=== PATIENT | female | born 2000 | race Caucasian/White ===

== ENCOUNTER 2023-07-08 18:00 | Emergency (ER) | payer SELFPAY ==
[2023-07-08 18:49] VITALS: RESP 18; TEMP 98.3; O2SAT 99
[2023-07-08] MEDS ORDERED: TORAdol 30 mg Injection IV ONE (18:54)
--- NOTE | 2023-07-08 19:32 | ERPHSYRPT ---
- History of Present Illness Time Seen by Provider: 07/08/23 18:29 Historian: patient Exam Limitations: no limitations Patient Subjective Stated Complaint: pt states for the past couple months I have had this pressure behind my rt eye. pt states that she was told she had multiple nodules on her lungs. 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 Patient reports she was seen in ER at [place] where she was diagnosed with pulmonary nodules. She reports still having symptoms of chest pain off and on. She has mild headache as well at times. She denies any difficulty breathing. No fever or chills reported. Patient since then has been seen in the [facility] ER yesterday for the same symptoms with negative work-up and is sent home. Patient denies any palpitations or known sick contact. Allergies/Adverse Reactions: amoxicillin Allergy (Verified 07/08/23 18:26) Anaphylactic Reaction Bleach (Sodium Hypochlorite) Allergy (Verified 07/08/23 18:26) Difficulty Breathing Iodinated Contrast Media Allergy (Verified 07/08/23 18:51) latex Allergy (Verified 07/08/23 18:26) Rash Penicillins Allergy (Verified 07/08/23 18:26) Anaphylactic Reaction red dye Allergy (Verified 07/08/23 18:26) Hives Home Medications: Albuterol Sulfate [Albuterol Sulfate Hfa] 2 puffs IH Q4HPRN PRN 07/08/23 [History] Cyanocobalamin (Vitamin B-12) [B-12] 1,000 mcg PO DAILY 07/08/23 [History] Ferrous Sulfate [Ferosul] 325 mg PO DAILY 07/08/23 [History] Scopolamine 1 each TD UD 07/08/23 [History] lamoTRIgine [Lamotrigine] 25 mg PO DAILY 07/08/23 [History] Hx Tetanus, Diphtheria Vaccination/Date Given: Yes Hx Influenza Vaccination/Date Given: No Immunizations Up to Date: Yes Travel Risk - International Travel Have you traveled outside of the country in past 3 weeks: No - Coronavirus Screening Are you exhibiting any of the following symptoms?: No Close contact with a COVID-19 positive Pt in past 14-21 Days: No - Vaccine Status Have you recieved a Covid-19 vaccination: No - Review of Systems Constitutional: No Symptoms Eyes: No Symptoms Ears, Nose, & Throat: No Symptoms Respiratory: Cough Cardiac: Chest Pain Abdominal/Gastrointestinal: No Symptoms Genitourinary Symptoms: No Symptoms Musculoskeletal: No Symptoms Skin: No Symptoms Neurological: Headache Endocrine: No Symptoms Hematologic/Lymphatic: No Symptoms Immunological/Allergic: No Symptoms - Past Medical History Pertinent Past Medical History: Yes Neurological History: Seizures ENT History: No Pertinent History Cardiac History: Hypertension, Other Respiratory History: Asthma Endocrine Medical History: No Pertinent History Musculoskeletal History: No Pertinent History GI Medical History: No Pertinent History History: No Pertinent History Psycho-Social History: Anxiety, Bipolar, Depression, Other Female Reproductive Disorders: No Pertinent History Other Medical History: anemia, boardline - Past Surgical History Past Surgical History: Yes Female Surgical History: Dilation & Curettage - Social History Smoking Status: Light tobacco smoker Exposure to second hand smoke: No Drug Use: none Patient Lives Alone: No - Female History Hx Now: (UNKN) - Nursing Vital Signs Nursing Vital Signs: Initial Vital Signs Temperature 98.3 F 07/08/23 18:01 Pulse Rate 82 07/08/23 18:01 Respiratory Rate 18 07/08/23 18:01 Blood Pressure 110/60 07/08/23 18:01 O2 Sat by Pulse Oximetry 99 07/08/23 18:01 Pain Scale Pain Intensity 6 - Physical Exam General Appearance: no apparent distress, alert Eye Exam: PERRL/EOMI, eyes nml inspection, No scleral icterus Ears, Nose, Throat Exam: normal ENT inspection, TMs normal, pharynx normal Neck Exam: normal inspection, non-tender, supple, full range of motion Respiratory Exam: normal breath sounds, lungs clear Cardiovascular Exam: regular rate/rhythm, normal heart sounds Gastrointestinal/Abdomen Exam: soft, normal bowel sounds, No tenderness Extremity Exam: normal inspection, normal range of motion Neurologic Exam: alert, oriented x 3, cooperative, 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 tested, normal mood/affect, nml cerebellar function, nml station & gait, sensation nml, motor deficits Skin Exam: normal color SpO2 Interpretation: normal SpO2: 99 O2 Delivery: Room Air - Course EKG Interpreted by Me: RATE (65), Sinus Rhythm, NORMAL AXIS, NORMAL INTERVALS, NORMAL QRS Ordered Tests: Active Orders 24 hr Category Date Time Status EKG-ER Only STAT Care 07/08/23 18:49 Active IV Insertion STAT Care 07/08/23 18:49 Active CHEST 1 VIEW (PORTABLE) Stat Exams 07/08/23 18:50 Taken CBC W DIFF Stat Lab 07/08/23 19:30 Completed CK-Creatinine Phosphokinase Stat Lab 07/08/23 19:30 Completed CMP Stat Lab 07/08/23 19:30 Completed HCG QUALITATIVE, URINE Stat Lab 07/08/23 19:30 Completed TROPONIN Q4H Lab 07/08/23 19:30 Completed TROPONIN Q4H Lab 07/08/23 23:00 Ordered TROPONIN Q4H Lab 07/09/23 03:00 Ordered Medication Summary Discontinued Medications Generic Name Dose Route Start Last Admin Trade Name Sebastian PRN Reason Stop Dose Admin Ketorolac Tromethamine 30 mg 07/08/23 18:54 07/08/23 19:13 Ketorolac Tromethamine 30 Mg/Ml Inj IV 07/08/23 18:55 Not Given STAT ONE Lab/Rad Data: Laboratory Result Diagrams 07/08/23 19:30 07/08/23 19:30 Laboratory Results 07/08/23 07/08/23 07/08/23 Range/Units 19:30 19:30 19:30 WBC (4.0-10.5) x10^3/uL RBC (4.1-5.4) x10^6/uL Hgb (12.0-16.0) g/dL Hct (35-47) % MCV (78-100) fL MCH (26-32) pg MCHC (32-36) g/dL RDW (11.5-14.0) % Plt Count (150-450) x10^3/uL MPV (7.5-11.0) fL Gran % (36.0-66.0) % Immature Gran % (Auto) (0.00-0.4) % Nucleat RBC Rel Count (0.00-0.1) % Eos # (Auto) (0-0.5) x10^3/uL Immature Gran # (Auto) (0.00-0.03) x10^3u/L Absolute Lymphs (auto) (1.0-4.6) x10^3/uL Absolute Monos (auto) (0.0-1.3) x10^3/uL Absolute Nucleated RBC (0.00-0.01) x10^3u/L Lymphocytes % (24.0-44.0) % Monocytes % (0.0-12.0) % Eosinophils % (0.00-5.0) % Basophils % (0.0-0.4) % Absolute Granulocytes (1.4-6.9) x10^3/uL Basophils # (0-0.4) x10^3/uL Sodium 139 (137-145) mmol/L Potassium 4.3 (3.5-5.1) mmol/L Chloride 104 (98-107) mmol/L Carbon Dioxide 24 (22-30) mmol/L Anion Gap 14.4 (5-15) MEQ/L BUN 11 (7-17) mg/dL Creatinine 0.67 (0.52-1.04) mg/dL Estimated GFR > 60.0 ML/MIN Glucose 103 (74-106) mg/dL Calcium 9.2 (8.4-10.2) mg/dL Total Bilirubin 0.50 (0.2-1.3) mg/dL AST 18 (14-36) U/L ALT 21 (0-35) U/L Alkaline Phosphatase 77 (38-126) U/L Creatine Kinase 32 (30-135) U/L Troponin I < 0.012 (0.000-0.034) ng/mL Serum Total Protein 7.3 (6.3-8.2) g/dL Albumin 4.7 (3.5-5.0) g/dL Urine HCG, Qual NEGATIVE (NEGATIVE) 07/08/23 Range/Units 19:30 WBC 6.4 (4.0-10.5) x10^3/uL RBC 4.09 L (4.1-5.4) x10^6/uL Hgb 12.4 (12.0-16.0) g/dL Hct 37.9 (35-47) % MCV 92.7 (78-100) fL MCH 30.3 (26-32) pg MCHC 32.7 (32-36) g/dL RDW 13.1 (11.5-14.0) % Plt Count 283 (150-450) x10^3/uL MPV 9.3 (7.5-11.0) fL Gran % 57.7 (36.0-66.0) % Immature Gran % (Auto) 0.2 (0.00-0.4) % Nucleat RBC Rel Count 0.0 (0.00-0.1) % Eos # (Auto) 0.35 (0-0.5) x10^3/uL Immature Gran # (Auto) 0.01 (0.00-0.03) x10^3u/L Absolute Lymphs (auto) 1.95 (1.0-4.6) x10^3/uL Absolute Monos (auto) 0.36 (0.0-1.3) x10^3/uL Absolute Nucleated RBC 0.00 (0.00-0.01) x10^3u/L Lymphocytes % 30.6 (24.0-44.0) % Monocytes % 5.7 (0.0-12.0) % Eosinophils % 5.5 H (0.00-5.0) % Basophils % 0.3 (0.0-0.4) % Absolute Granulocytes 3.68 (1.4-6.9) x10^3/uL Basophils # 0.02 (0-0.4) x10^3/uL Sodium (137-145) mmol/L Potassium (3.5-5.1) mmol/L Chloride (98-107) mmol/L Carbon Dioxide (22-30) mmol/L Anion Gap (5-15) MEQ/L BUN (7-17) mg/dL Creatinine (0.52-1.04) mg/dL Estimated GFR ML/MIN Glucose (74-106) mg/dL Calcium (8.4-10.2) mg/dL Total Bilirubin (0.2-1.3) mg/dL AST (14-36) U/L ALT (0-35) U/L Alkaline Phosphatase (38-126) U/L Creatine Kinase (30-135) U/L Troponin I (0.000-0.034) ng/mL Serum Total Protein (6.3-8.2) g/dL Albumin (3.5-5.0) g/dL Urine HCG, Qual (NEGATIVE) - Progress Progress: improved, re-examined Air Movement: good Progress Note: 07/08/23 19:31 23-year-old female with history of tobacco abuse presented in the ER for off-and-on chest pain for quite some time. Patient reports she was seen in ER at [place] where she was diagnosed with pulmonary nodules. She reports still having symptoms of chest pain off and on. She has mild headache as well at times. She denies any difficulty breathing. No fever or chills reported. Patient since then has been seen in the [facility] ER yesterday for the same symptoms with negative work-up and is sent home. Patient denies any palpitations or known sick contact. Patient is not in any distress. EKG is normal sinus rhythm with no acute ischemic changes. She is given Toradol for symptomatic relief. Will obtain chest x-ray and baseline labs. Patient symptoms been going on for quite some time. I do not think it is cardiac but will obtain troponin x1. If her work-up is negative, patient will be discharged with outpatient follow-up. 07/08/23 21:16 Patient is feeling much better after Toradol. She has nonfocal neuro exam. Headache is resolved. Normal eye exam including funduscopy. Lungs bilateral clear to auscultation. Chest x-ray negative for any acute cardiopulmonary findings. Normal white count, unremarkable chemistries including troponin. Part of her symptoms are secondary to anxiety, patient is counseled and recommended smoking cessation. Outpatient follow-up with primary care for further evaluation if have any symptoms. Discussed signs symptoms of worsening needing return to ER which she seems understanding. Blood Culture(s) Obtained: No Antibiotics given: No Counseled pt/family regarding: lab results, diagnosis, need for follow-up, rad results, smoking cessation Medical Desision Making - Independent Historian Additional History obtained from: Family - Diagnostic Testing Diagnostic test were ordered, analyzed, and reviewed by me: Yes Radiological Interpretation: Interpreted by me, Reviewed by me - Departure Departure Disposition: Home Clinical Impression: Atypical chest pain, Anxiety Condition: Stable Critical Care Time: No Referrals: EMILY INMAN NP [Primary Care Provider] - Follow up with PCP 1 day Instructions: Chest Pain (DC) Additional Instructions: Take Tylenol/ibuprofen as needed. Follow-up with primary care for reevaluation. Do not smoke. Return to ER for worsening chest pain or if having difficulty breathing etc.
[2023-07-08 19:35] LABS: Absolute Neutrophil Ct (ANC) 3.68 x10^3/uL (1.4-6.9); BASOPHIL % 0.3 % (0.0-0.4); Basophil (Absolute #) 0.02 x10^3/uL (0-0.4); Eosinophil % 5.5 % (0.00-5.0); Eosinophil (Absolute #) 0.35 x10^3/uL (0-0.5); Hematocrit 37.9 % (35-47); Hemoglobin 12.4 g/dL (12.0-16.0); IMMATURE GRAN # 0.01 x10^3u/L (0.00-0.03); IMMATURE GRAN % 0.2 % (0.00-0.4); Lymphocyte (Absolute #) 1.95 x10^3/uL (1.0-4.6); Lymphocytes % 30.6 % (24.0-44.0); Mean Cell Volume 92.7 fL (78-100); Mean Corpuscular Hemoglobin 30.3 pg (26-32); Mean Corpuscular Hgb Concent. 32.7 g/dL (32-36); Mean Platelet Volume 9.3 fL (7.5-11.0); Monocyte (Absolute #) 0.36 x10^3/uL (0.0-1.3); Monocytes % 5.7 % (0.0-12.0); Neutrophil % 57.7 % (36.0-66.0); Platelet Count 283 x10^3/uL (150-450); Red Blood Count 4.09 x10^6/uL (4.1-5.4); Red Cell Distribution Width 13.1 % (11.5-14.0); White Blood Count 6.4 x10^3/uL (4.0-10.5)
[2023-07-08 19:43] LABS: HCG URINE TEST NEGATIVE (NEGATIVE)
[2023-07-08 19:51] LABS: ALBUMIN 4.7 g/dL (3.5-5.0); ALKALINE PHOSPHATASE 77 U/L (38-126); ANION GAP 14.4 MEQ/L (5-15); BLOOD UREA NITROGEN 11 mg/dL (7-17); CHLORIDE 104 mmol/L (98-107); CK-Creatinine Phosphokinase 32 U/L (30-135); Calcium 9.2 mg/dL (8.4-10.2); Carbon Dioxide 24 mmol/L (22-30); Creatinine 1 0.67 mg/dL (0.52-1.04); EST GLOMERULAR FILTRATION RATE > 60.0 ML/MIN; Glucose 103 mg/dL (74-106); Potassium 4.3 mmol/L (3.5-5.1); SGOT/AST 18 U/L (14-36); SGPT/ALT 21 U/L (0-35); SODIUM 139 mmol/L (137-145); Total Protein 7.3 g/dL (6.3-8.2)
[2023-07-08 21:48] VITALS: BP 110/76; PULSE 82
--- NOTE | 2023-07-09 09:00 | XRAY ---
Indication: Chest pain. Comparison: None Portable chest demonstrates normal heart, lungs, and bony thorax with a few incidental tiny calcified granulomas.
== END 2023-07-08 21:38 | disposition home or self-care (01) ==
LOC: ED 18:00
DX: R07.89 Other chest pain (principal); F41.9 Anxiety disorder, unspecified; R51.9 Headache, unspecified; I10 Essential (primary) hypertension; Z79.899 Other long term (current) drug therapy; Z28.310 Unvaccinated for COVID-19; Z72.0 Tobacco use
CPT/HCPCS: 36415; 71045; 80053; 81025; 82550; 84484; 85025; 93005; 99283

== ENCOUNTER 2023-07-15 00:59 | Emergency (ER) | payer SELFPAY ==
[2023-07-15 01:25] VITALS: TEMP 97.2; O2SAT 99
[2023-07-15] MEDS ORDERED: TYLENOL 325 MG PO ONE (02:10)
--- NOTE | 2023-07-15 02:11 | ERPHSYRPT ---
- History of Present Illness Time Seen by Provider: 07/15/23 02:06 Source: patient Exam Limitations: no limitations Patient Subjective Stated Complaint: pt states I have this popping pain in my rt ear. I also have covid symptoms Triage Nursing Assessment: pt ambulated into the er; pt is axo x4; c/o rt ear pain; no redness or drainage present in catia ears; nasal congestion present; clear lung sounds in all lobes; skin PDW; vitals wnl; no respiratory distress present Physician History: Patient is a 23-year-old female presents to our ED for evaluation of "popping" in her ears. Patient was just at [facility] 3 hours ago for the same problem. Patient tested positive for COVID. Patient states the doctor there told her that she had fluid in her ears and advised ibuprofen. Patient is here because she is still experiencing popping in her ears. Patient has no other complaints at this time. Symptoms are mild in intensity. No specific worsening improving factors. Patient voices no other complaints or concerns at this time. Portions of this note were created with voice recognition technology. There may be grammatical, spelling, punctuation or sound alike errors Timing/Duration: today Severity: mild Modifying Factors: Improves With: nothing Associated Symptoms: denies symptoms Allergies/Adverse Reactions: amoxicillin Allergy (Verified 07/15/23 01:33) Anaphylactic Reaction Bleach (Sodium Hypochlorite) Allergy (Verified 07/15/23 01:33) Difficulty Breathing Iodinated Contrast Media Allergy (Verified 07/15/23 01:33) latex Allergy (Verified 07/15/23 01:33) Rash Penicillins Allergy (Verified 07/15/23 01:33) Anaphylactic Reaction red dye Allergy (Verified 07/15/23 01:33) Hives Home Medications: Albuterol Sulfate [Albuterol Sulfate Hfa] 2 puffs IH Q4HPRN PRN 07/08/23 [History] Cyanocobalamin (Vitamin B-12) [B-12] 1,000 mcg PO DAILY 07/08/23 [History] Ferrous Sulfate [Ferosul] 325 mg PO DAILY 07/08/23 [History] Scopolamine 1 each TD UD 07/08/23 [History] lamoTRIgine [Lamotrigine] 25 mg PO DAILY 07/08/23 [History] Hx Tetanus, Diphtheria Vaccination/Date Given: Yes Hx Influenza Vaccination/Date Given: No Travel Risk - International Travel Have you traveled outside of the country in past 3 weeks: No - Coronavirus Screening Are you exhibiting any of the following symptoms?: Yes Symptoms: Headaches/Body Aches/Fatigue - Vaccine Status Have you recieved a Covid-19 vaccination: No - Review of Systems Constitutional: No Symptoms, No Fever, No Chills Eyes: No Symptoms Ears, Nose, & Throat: No Symptoms Respiratory: No Symptoms, No Cough, No Dyspnea Cardiac: No Symptoms, No Chest Pain, No Edema, No Syncope Abdominal/Gastrointestinal: No Symptoms, No Abdominal Pain, No Nausea, No Vomiting, No Diarrhea Genitourinary Symptoms: No Symptoms, No Dysuria Musculoskeletal: No Symptoms, No Back Pain, No Neck Pain Skin: No Symptoms, No Rash Neurological: No Symptoms, No Dizziness, No Focal Weakness, No Sensory Changes Psychological: No Symptoms Endocrine: No Symptoms Hematologic/Lymphatic: No Symptoms Immunological/Allergic: No Symptoms All Other Systems: Reviewed and Negative - Past Medical History Pertinent Past Medical History: Yes Neurological History: Seizures ENT History: No Pertinent History Cardiac History: Hypertension, Other Respiratory History: Asthma Endocrine Medical History: No Pertinent History Musculoskeletal History: No Pertinent History GI Medical History: No Pertinent History History: No Pertinent History Psycho-Social History: Anxiety, Bipolar, Depression, Other Female Reproductive Disorders: No Pertinent History Other Medical History: anemia, boardline - Past Surgical History Past Surgical History: Yes Neuro Surgical History: No Pertinent History Cardiac: No Pertinent History Respiratory: No Pertinent History Gastrointestinal: No Pertinent History Genitourinary: No Pertinent History Musculoskeletal: No Pertinent History Female Surgical History: Dilation & Curettage - Social History Smoking Status: Light tobacco smoker Exposure to second hand smoke: No Drug Use: none Patient Lives Alone: No - Female History Hx Now: No - Nursing Vital Signs Nursing Vital Signs: Initial Vital Signs Temperature 97.2 F 07/15/23 01:13 Pulse Rate 69 07/15/23 01:13 Respiratory Rate 14 07/15/23 01:13 Blood Pressure 116/88 07/15/23 01:13 O2 Sat by Pulse Oximetry 99 07/15/23 01:13 Pain Scale Pain Intensity 0 - Physical Exam General Appearance: no apparent distress, alert Eye Exam: PERRL/EOMI, eyes nml inspection Ears, Nose, Throat Exam: normal ENT inspection, TMs normal, pharynx normal, moist mucous membranes Neck Exam: normal inspection, non-tender, supple, full range of motion Respiratory Exam: normal breath sounds, lungs clear, airway intact, No respiratory distress Cardiovascular Exam: regular rate/rhythm, normal heart sounds, normal peripheral pulses Gastrointestinal/Abdomen Exam: soft, normal bowel sounds, No tenderness, No mass Back Exam: normal inspection, normal range of motion, No CVA tenderness, No vertebral tenderness Extremity Exam: normal inspection, normal range of motion, pelvis stable Neurologic Exam: alert, oriented x 3, cooperative, normal mood/affect, nml cerebellar function, nml station & gait, sensation nml, No motor deficits Skin Exam: normal color, warm, dry, No rash Lymphatic Exam: No adenopathy SpO2 Interpretation: normal SpO2: 99 O2 Delivery: Room Air - Course Nursing assessment & vital signs reviewed: Yes - Progress Progress: improved Progress Note: 23-year-old female presents to our ED for evaluation of popping in her ears. Patient was at [facility] 3 hours earlier. Patient tested positive for COVID. Patient states that the other hospital "only offer me ibuprofen". I offered patient a IM Decadron. Patient declined. No indication for further work-up at this time. Tylenol administered for discomfort/popping in ear. Patient be discharged home. Patient agrees to follow-up with her primary care doctor within 48 hours for reevaluation. Portions of this note were created with voice recognition technology. There may be grammatical, spelling, punctuation or sound alike errors Complexity of problems addressed is low acute uncomplicated Complexity of data reviewed and analyzed is none. No specialized testing ordered. Diagnosis made based on history and physical examination. Risk of complication/risk morbidity/mortality patient management is minimal. Patient declined the intervention advised by Dr. Cabrera. We will discharge home. Vital stable. Patient voices no other complaints or concerns at this time. Patient agrees to follow-up with her primary care doctor within 48 hours for reevaluation. Portions of this note were created with voice recognition technology. There may be grammatical, spelling, punctuation or sound alike errors 07/15/23 02:12 Counseled pt/family regarding: diagnosis, need for follow-up - Departure Departure Disposition: Home Clinical Impression: Popping of both ears, SARS-CoV-2 positive Condition: Stable Critical Care Time: No Referrals: EMILY INMAN NP [Primary Care Provider] - Follow up/PCP as directed Additional Instructions: Discharge/Care Plan KATHIALONSO GALINDO was seen on 07/15/23 in the Emergency Room. The patient was counseled regarding Diagnosis,Lab results, Imaging studies, need for follow up and when to return to the Emergency Room. Prescriptions given: Discharge Note I have spoken with the patient and/or caregivers. I have explained the patient's condition, diagnosis and treatment plan based on the information available to me at this time. I have answered the patient's and/or caregiver's questions and addressed any concerns. The patient and/or caregivers have as good understanding of the patient's diagnosis, condition and treatment plan as can be expected at this point. The vital signs have been stable. The patient's condition is stable and appropriate for discharge from the emergency department. The patient will pursue further outpatient evaluation with the primary care physician or other designated or consulting physician as outlined in the discharge instructions. The patient and/or caregivers are agreeable to this plan of care and follow-up instructions have been explained in detail. The patient and/or caregivers have received these instruction. The patient/and or caregivers are aware that any significant change in condition or worsening of symptoms should prompt an immediate return to this or the closest emergency department or call 911.
[2023-07-15 02:12] VITALS: BP 114/76; PULSE 68; RESP 12
[2023-07-15 02:12] LABS: INFLUENZA A NEGATIVE (NEGATIVE); INFLUENZA B NEGATIVE (NEGATIVE); RESPIRATORY SYNCTIAL VIRUS NEGATIVE (NEGATIVE)
[2023-07-15] MEDS ORDERED: TYLENOL 325 MG ONE (02:13)
[2023-07-15 02:26] LABS: SARS-CoV-2 Xpert Express POSITIVE (NEGATIVE)
== END 2023-07-15 02:20 | disposition home or self-care (01) ==
LOC: ED 00:59
DX: U07.1 COVID-19 (principal); H93.8X3 Other specified disorders of ear, bilateral; I10 Essential (primary) hypertension; Z28.310 Unvaccinated for COVID-19; Z72.0 Tobacco use
CPT/HCPCS: 0241U; 99282; A9270-GY

== ENCOUNTER 2023-09-25 15:13 | Emergency (ER) | payer MEDICAID ==
[2023-09-25 15:28] VITALS: TEMP 97.2
[2023-09-25] MEDS ORDERED: Sodium Chloride 0.9% 1000 ML 1,000 ML IV STA (16:41)
[2023-09-25] MEDS ORDERED: Sodium Chloride 0.9% 1000 ML 0 ML ONE (16:43)
[2023-09-25 17:17] LABS: Appearance Cloudy (Clear); Bacteria Rare /HPF (None Seen); Bilirubin Negative (Negative); Blood Negative (Negative); Epithelial Cells Moderate /HPF (None Seen); Glucose, Urine Negative (Negative); Hyaline Casts NONE SEEN /LPF (0-2); Ketones Negative (Negative); Leukocyte Esterase Trace (Negative); Nitrite Negative (Negative); Protein,Urine Dip Negative (Negative); RBC 0-2 /HPF (0-5); Specific Gravity 1.025 (1.005-1.030); Urobilinogen 0.2 mg/dL (0.2)
[2023-09-25 17:18] LABS: ADD URINE CULTURE? YES (NO)
[2023-09-25 17:37] LABS: Absolute Neutrophil Ct (ANC) 3.72 x10^3/uL (1.4-6.9); BASOPHIL % 0.5 % (0.0-0.4); Basophil (Absolute #) 0.03 x10^3/uL (0-0.4); Eosinophil (Absolute #) 0.33 x10^3/uL (0-0.5); Hematocrit 36.3 % (35-47); Hemoglobin 11.6 g/dL (12.0-16.0); IMMATURE GRAN # 0.01 x10^3u/L (0.00-0.03); IMMATURE GRAN % 0.2 % (0.00-0.4); Lymphocyte (Absolute #) 2.15 x10^3/uL (1.0-4.6); Lymphocytes % 32.8 % (24.0-44.0); Mean Cell Volume 91.2 fL (78-100); Mean Corpuscular Hemoglobin 29.1 pg (26-32); Monocyte (Absolute #) 0.31 x10^3/uL (0.0-1.3); Monocytes % 4.7 % (0.0-12.0); Neutrophil % 56.8 % (36.0-66.0); Platelet Count 285 x10^3/uL (150-450); Red Blood Count 3.98 x10^6/uL (4.1-5.4); Red Cell Distribution Width 12.9 % (11.5-14.0); White Blood Count 6.6 x10^3/uL (4.0-10.5)
[2023-09-25 17:50] LABS: HCG SERUM TEST NEGATIVE (NEGATIVE)
[2023-09-25 17:53] LABS: ALBUMIN 4.6 g/dL (3.5-5.0); ANION GAP 12.6 MEQ/L (5-15); BILIRUBIN,TOTAL 0.3 mg/dL (0.2-1.3); Calcium 9.9 mg/dL (8.4-10.2); Creatinine 1 0.63 mg/dL (0.52-1.04); EST GLOMERULAR FILTRATION RATE 129.4 ML/MIN; Potassium 4.3 mmol/L (3.5-5.1); Total Protein 7.5 g/dL (6.3-8.2)
[2023-09-25 18:25] VITALS: O2SAT 97
--- NOTE | 2023-09-25 18:55 | XRAY ---
CLINICAL HISTORY:RLQ PAIN COMPARISON:None. TECHNIQUE:A CT scan of the abdomen and pelvis was performed without IV contrast. Coronal and sagittal reconstructive images were also obtained. FINDINGS: A scan through the lower chest reveals unremarkable lung bases and heart. Abdomen: There is a bowel wall thickening with hypodense attenuation at the ascending colon, including the cecum. The liver is of average size and measures 13 cm. No focal or diffuse parenchymal abnormality. The portal vein, intrahepatic biliary radicals, and the bile ducts are normal. The spleen, pancreas, and adrenal glands are unremarkable. The kidneys are unremarkable. They are normal in size and shape. No calculi or hydronephrosis. The gallbladder is contracted, which may still be physiologic. The ascending colon, the transverse colon, the descending colon, visualized small bowel loops are unremarkable. There is no evidence of significant enlargement of the mesenteric or retroperitoneal lymph nodes. Pelvis: The urinary bladder is unremarkable. The rectosigmoid colon is unremarkable. The uterus is of average size. The right adnexa is enlarged with a hypodense cystic lesion measuring 28.8 x 35.2 x 40.5 mm. The pelvic vasculature is unremarkable. No evidence of pelvic lymphadenopathy. No definite bony abnormalities could be depicted. Normal CT appearance of the appendix. IMPRESSION: 1. Bowel wall thickening with hypodense attenuation at the ascending colon, including the cecum. This could be inflammatory or infectious in origin. Clinical correlation and follow-up are suggested. 2. Contracted gallbladder, which may still be physiologic. Clinical correlation is suggested. 3. Right adnexal hypodense cystic lesion measuring 28.8 x 35.2 x 40.5 mm. Further, US correlation and follow-up is advised. 4. Normal CT appearance of the appendix. Electronically Signed by: Sabrina Barnes MD. (09/25/2023 17:54:11 [employer])
--- NOTE | 2023-09-25 19:11 | ERPHSYRPT ---
- History of Present Illness Time Seen by Provider: 09/25/23 15:34 Historian: patient Exam Limitations: no limitations Patient Subjective Stated Complaint: PT HERE FOR RIGHT ABD PAIN FOR 3-4 DAYS NOW WITH NAUSEA. WAS SEEN 2 DAYS AGO AT [facility], WAS TOLD SHE HAD CYST ON HER ABD, WAS GIVEN MEDICATION WHICH SHE HAS NOT TAKEN, Triage Nursing Assessment: PT ALERT, WALKED IN, RESP EASY, SKIN W/D/P. ABD FLAT, TENDER TO RIGHT SIDE, NO EDEMA NOTED, Physician History: 23-year-old female presented to the ER with chief complaint of right-sided abdominal pain for the last 2 weeks. Patient reports she was seen at [facility] ER couple days ago where she had a CT abdomen pelvis and ultrasound done which showed some element of constipation and right ovarian cyst with no torsion. She was recommended to take naproxen but she did not take any. Reports pain more in the right flank/upper quadrant area, moderate intensity sharp nature without associated nausea or vomiting but has questionable element of constipation. No diarrhea reported. No fever or chills reported. Patient reports she has a hard time taking any medications and usually does not take any medicine. Allergies/Adverse Reactions: amoxicillin Allergy (Verified 09/25/23 15:24) Anaphylactic Reaction Bleach (Sodium Hypochlorite) Allergy (Verified 09/25/23 15:24) Difficulty Breathing Iodinated Contrast Media Allergy (Verified 09/25/23 15:24) latex Allergy (Verified 09/25/23 15:24) Rash Penicillins Allergy (Verified 09/25/23 15:24) Anaphylactic Reaction red dye Allergy (Verified 09/25/23 15:24) Hives strawberry Allergy (Verified 09/25/23 15:24) Home Medications: Ondansetron ODT 4 MG [Zofran Odt 4 mg] 1 tab SL Q4H PRN PRN 08/08/23 [History] Hx Tetanus, Diphtheria Vaccination/Date Given: No Hx Influenza Vaccination/Date Given: No Hx Pneumococcal Vaccination/Date Given: No Immunizations Up to Date: Yes Travel Risk - International Travel Have you traveled outside of the country in past 3 weeks: No - Coronavirus Screening Are you exhibiting any of the following symptoms?: No Close contact with a COVID-19 positive Pt in past 14-21 Days: No - Vaccine Status Have you recieved a Covid-19 vaccination: No - Review of Systems Constitutional: No Symptoms Eyes: No Symptoms Ears, Nose, & Throat: No Symptoms Respiratory: No Symptoms Cardiac: No Symptoms Abdominal/Gastrointestinal: Abdominal Pain Genitourinary Symptoms: No Symptoms Musculoskeletal: No Symptoms Skin: No Symptoms Neurological: No Symptoms Endocrine: No Symptoms Hematologic/Lymphatic: No Symptoms Immunological/Allergic: No Symptoms - Past Medical History Pertinent Past Medical History: Yes Neurological History: Seizures ENT History: No Pertinent History Cardiac History: Hypertension, Other Respiratory History: Asthma Endocrine Medical History: No Pertinent History, Hyperthyroidism Musculoskeletal History: No Pertinent History GI Medical History: No Pertinent History History: No Pertinent History Psycho-Social History: Anxiety, Bipolar, Depression, Other Female Reproductive Disorders: No Pertinent History Other Medical History: anemia, boardline ,CYST IN ABD ON 10/07 - Past Surgical History Past Surgical History: Yes Neuro Surgical History: No Pertinent History Cardiac: No Pertinent History Respiratory: No Pertinent History Gastrointestinal: No Pertinent History Genitourinary: No Pertinent History Musculoskeletal: No Pertinent History Female Surgical History: Dilation & Curettage - Social History Smoking Status: Current every day smoker How long have you smoked: 11 yrs Exposure to second hand smoke: No Drug Use: none Patient Lives Alone: Yes - Female History Hx Last Menstrual Period: 09/19/2023 Hx Now: No - Nursing Vital Signs Nursing Vital Signs: Initial Vital Signs Temperature 97.2 F 09/25/23 15:27 Pulse Rate 71 09/25/23 15:27 Respiratory Rate 18 09/25/23 15:27 Blood Pressure 127/70 09/25/23 15:27 O2 Sat by Pulse Oximetry 99 09/25/23 15:27 Pain Scale Pain Intensity 6 - Physical Exam General Appearance: no apparent distress, alert Eye Exam: PERRL/EOMI Ears, Nose, Throat Exam: normal ENT inspection Neck Exam: normal inspection, supple, full range of motion Respiratory Exam: normal breath sounds, lungs clear Cardiovascular Exam: regular rate/rhythm, normal heart sounds Gastrointestinal/Abdomen Exam: soft, normal bowel sounds, tenderness (Right side abdominal tenderness. No rebound tenderness.) Back Exam: normal inspection, normal range of motion Extremity Exam: normal inspection Neurologic Exam: alert, oriented x 3, cooperative, No depressed mood/affect Skin Exam: normal color SpO2 Interpretation: normal SpO2: 97 O2 Delivery: Room Air Ordered Tests: Active Orders 24 hr Category Date Time Status IV Insertion STAT Care 09/25/23 16:41 Active ABDOMEN AND PELVIS W/0 CONTRAS [CT] Stat Exams 09/25/23 16:41 Completed CBC W DIFF Stat Lab 09/25/23 17:33 Completed CMP Stat Lab 09/25/23 17:33 Completed CULTURE,URINE Stat Lab 09/25/23 16:43 Received HCG QUALITATIVE, SERUM Stat Lab 09/25/23 17:33 Completed UA W/RFX UR CULTURE Stat Lab 09/25/23 16:43 Completed Medication Summary Discontinued Medications Generic Name Dose Route Start Last Admin Trade Name Sebastian PRN Reason Stop Dose Admin Sodium Chloride 1,000 mls @ 999 mls/hr 09/25/23 16:41 09/25/23 18:07 Sodium Chloride 0.9% 1000 Ml IV 09/25/23 17:41 Infused .Q1H1M STA Infusion Sodium Chloride Confirm 09/25/23 16:43 Sodium Chloride 0.9% 1000 Ml Administered 09/25/23 16:44 Dose 1,000 mls @ ud .ROUTE .[facility] Lab/Rad Data: Laboratory Result Diagrams 09/25/23 17:33 09/25/23 17:33 Laboratory Results 09/25/23 09/25/23 09/25/23 Range/Units 17:33 17:33 17:33 WBC 6.6 (4.0-10.5) x10^3/uL RBC 3.98 L (4.1-5.4) x10^6/uL Hgb 11.6 L (12.0-16.0) g/dL Hct 36.3 (35-47) % MCV 91.2 (78-100) fL MCH 29.1 (26-32) pg MCHC 32.0 (32-36) g/dL RDW 12.9 (11.5-14.0) % Plt Count 285 (150-450) x10^3/uL MPV 9.0 (7.5-11.0) fL Gran % 56.8 (36.0-66.0) % Immature Gran % (Auto) 0.2 (0.00-0.4) % Nucleat RBC Rel Count 0.0 (0.00-0.1) % Eos # (Auto) 0.33 (0-0.5) x10^3/uL Immature Gran # (Auto) 0.01 (0.00-0.03) x10^3u/L Absolute Lymphs (auto) 2.15 (1.0-4.6) x10^3/uL Absolute Monos (auto) 0.31 (0.0-1.3) x10^3/uL Absolute Nucleated RBC 0.00 (0.00-0.01) x10^3u/L Lymphocytes % 32.8 (24.0-44.0) % Monocytes % 4.7 (0.0-12.0) % Eosinophils % 5.0 (0.00-5.0) % Basophils % 0.5 (0.0-0.4) % Absolute Granulocytes 3.72 (1.4-6.9) x10^3/uL Basophils # 0.03 (0-0.4) x10^3/uL Sodium 140 (137-145) mmol/L Potassium 4.3 (3.5-5.1) mmol/L Chloride 105 (98-107) mmol/L Carbon Dioxide 27 (22-30) mmol/L Anion Gap 12.6 (5-15) MEQ/L BUN 21 H (7-17) mg/dL Creatinine 0.63 (0.52-1.04) mg/dL Estimated GFR 129.4 ML/MIN Glucose 87 (74-106) mg/dL Calcium 9.9 (8.4-10.2) mg/dL Total Bilirubin 0.30 (0.2-1.3) mg/dL AST 21 (14-36) U/L ALT 26 (0-35) U/L Alkaline Phosphatase 100 (38-126) U/L Serum Total Protein 7.5 (6.3-8.2) g/dL Albumin 4.6 (3.5-5.0) g/dL Serum HCG, Qual NEGATIVE (NEGATIVE) Urine Color (Yellow) Urine Appearance (Clear) Urine pH (4.6-8.0) Ur Specific [place] (1.005-1.030) Urine Protein (Negative) Urine Glucose (UA) (Negative) mg/dL Urine Ketones (Negative) Urine Blood (Negative) Urine Nitrite (Negative) Urine Bilirubin (Negative) Urine Urobilinogen (0.2) mg/dL Ur Leukocyte Esterase (Negative) U Hyaline Cast (Auto) (0-2) /LPF Urine Microscopic RBC (0-5) /HPF Urine Microscopic WBC (0-5) /HPF Ur Epithelial Cells (None Seen) /HPF Urine Bacteria (None Seen) /HPF Urine Culture Reflexed (NO) 09/25/23 Range/Units 16:43 WBC (4.0-10.5) x10^3/uL RBC (4.1-5.4) x10^6/uL Hgb (12.0-16.0) g/dL Hct (35-47) % MCV (78-100) fL MCH (26-32) pg MCHC (32-36) g/dL RDW (11.5-14.0) % Plt Count (150-450) x10^3/uL MPV (7.5-11.0) fL Gran % (36.0-66.0) % Immature Gran % (Auto) (0.00-0.4) % Nucleat RBC Rel Count (0.00-0.1) % Eos # (Auto) (0-0.5) x10^3/uL Immature Gran # (Auto) (0.00-0.03) x10^3u/L Absolute Lymphs (auto) (1.0-4.6) x10^3/uL Absolute Monos (auto) (0.0-1.3) x10^3/uL Absolute Nucleated RBC (0.00-0.01) x10^3u/L Lymphocytes % (24.0-44.0) % Monocytes % (0.0-12.0) % Eosinophils % (0.00-5.0) % Basophils % (0.0-0.4) % Absolute Granulocytes (1.4-6.9) x10^3/uL Basophils # (0-0.4) x10^3/uL Sodium (137-145) mmol/L Potassium (3.5-5.1) mmol/L Chloride (98-107) mmol/L Carbon Dioxide (22-30) mmol/L Anion Gap (5-15) MEQ/L BUN (7-17) mg/dL Creatinine (0.52-1.04) mg/dL Estimated GFR ML/MIN Glucose (74-106) mg/dL Calcium (8.4-10.2) mg/dL Total Bilirubin (0.2-1.3) mg/dL AST (14-36) U/L ALT (0-35) U/L Alkaline Phosphatase (38-126) U/L Serum Total Protein (6.3-8.2) g/dL Albumin (3.5-5.0) g/dL Serum HCG, Qual (NEGATIVE) Urine Color Yellow (Yellow) Urine Appearance Cloudy A (Clear) Urine pH 6.0 (4.6-8.0) Ur Specific [place] 1.025 (1.005-1.030) Urine Protein Negative (Negative) Urine Glucose (UA) Negative (Negative) mg/dL Urine Ketones Negative (Negative) Urine Blood Negative (Negative) Urine Nitrite Negative (Negative) Urine Bilirubin Negative (Negative) Urine Urobilinogen 0.2 (0.2) mg/dL Ur Leukocyte Esterase Trace A (Negative) U Hyaline Cast (Auto) NONE SEEN (0-2) /LPF Urine Microscopic RBC 0-2 (0-5) /HPF Urine Microscopic WBC 11-20 A (0-5) /HPF Ur Epithelial Cells Moderate A (None Seen) /HPF Urine Bacteria Rare A (None Seen) /HPF Urine Culture Reflexed YES (NO) - Progress Progress: unchanged Progress Note: 09/25/23 19:18 23-year-old female presented to the ER with chief complaint of right-sided abdominal pain for the last 2 weeks. Patient reports [facility] where she had a CT abdomen pelvis and ultrasound done which showed some element of constipation and right ovarian cyst with no torsion. She was recommended to take naproxen but she did not take any. Reports pain more in the right flank/upper quadrant area, moderate intensity sharp nature without associated nausea or vomiting but has questionable element of constipation. No diarrhea reported. No fever or chills reported. Patient reports she has a hard time taking any medications and usually does not take any medicine. Patient is offered IV pain medication which she declined even nonnarcotics. She has normal white count, fairly unremarkable chemistries. No definitive UTI. I have obtained CT abdomen pelvis without contrast which showed right-sided colitis and also has a right adnexal cyst 4 x 3.5 x 2.8 cm which patient told the same dimension when it was measured at ultrasound done at [facility] couple of days ago. I have tried to get records from [facility] but could not. Patient is started on Cipro and Flagyl. Recommended outpatient follow-up with Dr. Machuca for evaluation of cyst. Patient has normal appendix. She is advised to take Tylenol ibuprofen as needed and outpatient follow-up. Discussed signs symptoms of worsening needing return to ER which she seems understanding. Stable for discharge. Counseled pt/family regarding: lab results, diagnosis, need for follow-up, rad results, smoking cessation Medical Desision Making - Independent Historian Additional History obtained from: Spouse - Diagnostic Testing Diagnostic test were ordered, analyzed, and reviewed by me: Yes Radiological Interpretation: Interpreted by me, Reviewed by me - Risk of complications The pt has a mod risk of morbidity or mortality based on: Need for prescription drug management - Departure Departure Disposition: Home Clinical Impression: Right sided colitis, Ovarian cyst Condition: Stable Critical Care Time: No Referrals: EMILY INMAN, SERGIO [Primary Care Provider] - Follow up/PCP as directed SUDHIR MACHUCA DO [ACTIVE STAFF] - Follow up/PCP as directed (Call in 1 to 2 days for appointment) Instructions: Colitis, Ovarian Cyst (DC) Additional Instructions: Take Tylenol/naproxen as needed. Continue with antibiotics. Follow-up with primary care and [facility] for reevaluation. Return to ER for any worsening of pain, intractable vomiting/fever chills etc. Prescriptions: Ciprofloxacin [Cipro 500 MG] 500 mg PO BID #14 tablet Metronidazole 500 mg [Flagyl 500 MG] 500 mg PO TID #21 tablet
[2023-09-25] MEDS ORDERED: Flagyl 500 MG ONE (19:34)
[2023-09-25] MEDS ORDERED: Cipro 500 MG ONE (19:34)
[2023-09-25] MEDS: Flagyl 500 MG PO ONE ×2 (19:35→19:43)
[2023-09-25] MEDS: Cipro 500 MG PO STA ×2 (19:35→19:43)
[2023-09-25 19:44] VITALS: BP 115/77; PULSE 76; RESP 16
== END 2023-09-25 19:50 | disposition home or self-care (01) ==
LOC: ED 15:13
DX: K52.9 Noninfective gastroenteritis and colitis, unspecified (principal); N83.201 Unspecified ovarian cyst, right side; R10.11 Right upper quadrant pain; R10.31 Right lower quadrant pain; I10 Essential (primary) hypertension; Z28.310 Unvaccinated for COVID-19; Z72.0 Tobacco use
CPT/HCPCS: 36415; 74176; 80053; 81001; 84703; 85025; 87086; 96360; 99284; A9270-GY

== ENCOUNTER 2023-10-11 15:21 | Emergency (ER) | payer MEDICAID ==
[2023-10-11 15:46] VITALS: PULSE 75; TEMP 97.8
--- NOTE | 2023-10-11 16:28 | ERPHSYRPT ---
- History of Present Illness Source: patient, other (Significant other) Exam Limitations: no limitations Patient Subjective Stated Complaint: C/O intermittent headache, runny nose, fatigue for 4 days Triage Nursing Assessment: Patient ambulated back to ER without difficulties. She is alert and oriented. No SOB. Patient is hoarse; denies sore throat. BUNCH WNL. Skin tone normal. Denies current headache; current pain #0 on 0-10 scale. Physician History: Patient is a 23-year-old female with chief complaint of dyspnea for 4 days. She denies cough, nausea, vomiting, diarrhea, fever, coryza, dysuria, hematuria, and . Patient states she just does not feel like herself. Timing/Duration: day(s) (4 days) Severity: mild (Mild) Modifying Factors: Improves With: nothing Associated Symptoms: denies symptoms Allergies/Adverse Reactions: amoxicillin Allergy (Verified 10/11/23 15:33) Anaphylactic Reaction Bleach (Sodium Hypochlorite) Allergy (Verified 10/11/23 15:33) Difficulty Breathing Iodinated Contrast Media Allergy (Verified 10/11/23 15:33) latex Allergy (Verified 10/11/23 15:33) Rash Penicillins Allergy (Verified 10/11/23 15:33) Anaphylactic Reaction red dye Allergy (Verified 10/11/23 15:33) Hives strawberry Allergy (Verified 10/11/23 15:33) Home Medications: Ondansetron ODT 4 MG [Zofran Odt 4 mg] 1 tab SL Q4H PRN PRN 08/08/23 [History] Hx Tetanus, Diphtheria Vaccination/Date Given: Yes Hx Influenza Vaccination/Date Given: No Hx Pneumococcal Vaccination/Date Given: No Immunizations Up to Date: Yes Travel Risk - International Travel Have you traveled outside of the country in past 3 weeks: No - Coronavirus Screening Are you exhibiting any of the following symptoms?: Yes Symptoms: Headaches/Body Aches/Fatigue Close contact with a COVID-19 positive Pt in past 14-21 Days: No - Vaccine Status Have you recieved a Covid-19 vaccination: No - Review of Systems Constitutional: No Symptoms, Fatigue, Lethargy, Malaise Eyes: No Symptoms Ears, Nose, & Throat: No Symptoms Respiratory: No Symptoms Cardiac: No Symptoms Abdominal/Gastrointestinal: No Symptoms Genitourinary Symptoms: No Symptoms Musculoskeletal: No Symptoms Skin: No Symptoms Neurological: No Symptoms Psychological: No Symptoms Endocrine: No Symptoms Hematologic/Lymphatic: No Symptoms Immunological/Allergic: No Symptoms - Past Medical History Pertinent Past Medical History: Yes Neurological History: Seizures ENT History: No Pertinent History Cardiac History: Hypertension, Other Respiratory History: Asthma Endocrine Medical History: Hyperthyroidism Musculoskeletal History: No Pertinent History GI Medical History: No Pertinent History History: No Pertinent History Psycho-Social History: Anxiety, Bipolar, Depression, Other Female Reproductive Disorders: No Pertinent History Other Medical History: anemia, CYST IN ABD ON 10/07 - Past Surgical History Past Surgical History: Yes Neuro Surgical History: No Pertinent History Cardiac: No Pertinent History Respiratory: No Pertinent History Gastrointestinal: No Pertinent History Genitourinary: No Pertinent History Musculoskeletal: No Pertinent History Female Surgical History: Dilation & Curettage - Social History Smoking Status: Current every day smoker How long have you smoked: 11 yrs Exposure to second hand smoke: No Drug Use: none Patient Lives Alone: Yes - Female History Hx Last Menstrual Period: 26 days ago Hx Now: No - Nursing Vital Signs Nursing Vital Signs: Initial Vital Signs Temperature 97.8 F 10/11/23 15:21 Pulse Rate 75 10/11/23 15:21 Respiratory Rate 20 10/11/23 15:21 Blood Pressure 104/60 10/11/23 15:21 O2 Sat by Pulse Oximetry 100 10/11/23 15:21 Pain Scale Pain Intensity 0 Within normal limits - Physical Exam General Appearance: no apparent distress Eye Exam: PERRL/EOMI, eyes nml inspection Ears, Nose, Throat Exam: normal ENT inspection, TMs normal, pharynx normal, mo ist mucous membranes Neck Exam: normal inspection, non-tender, supple, full range of motion, No meningismus, No mass, No Brudzinski, No Kernig's Respiratory Exam: normal breath sounds, lungs clear, airway intact Cardiovascular Exam: regular rate/rhythm, normal heart sounds, normal peripheral pulses, No murmur Gastrointestinal/Abdomen Exam: soft, normal bowel sounds, No tenderness Back Exam: normal inspection, normal range of motion Extremity Exam: normal inspection, normal range of motion Neurologic Exam: alert, oriented x 3, cooperative, ball point splitter II-XII nml as tested, normal mood/affect, nml cerebellar function, nml station & gait, sensation nml Skin Exam: normal color, warm, dry, No rash Lymphatic Exam: No adenopathy SpO2 Interpretation: normal SpO2: 100 O2 Delivery: Room Air Lab/Rad Data: Laboratory Results 10/11/23 Range/Units 15:50 Influenza Type A Ag NEGATIVE (NEGATIVE) Influenza Type B Ag NEGATIVE (NEGATIVE) RSV (PCR) NEGATIVE (NEGATIVE) SARS-CoV-2 (PCR) NEGATIVE (NEGATIVE) Group A Strep Antibody NOT DETECTED (NEGATIVE) - Progress Progress Note: 10/11/23 17:13 Nursing note and vital signs reviewed. No food or housing insecurities noted. All lab results reviewed and shared with patient and significant other. No evidence of acute pathologic process noted at this time. Patient discharged to follow-up with her PCP. 10/11/23 17:27 Patient with great sats and clear auscultatory exam during her entire stay. 10/11/23 17:28 No evidence of any dyspnea while in ER. Counseled pt/family regarding: lab results, diagnosis, need for follow-up - Departure Departure Disposition: Home Clinical Impression: Lethargy, Dyspnea Condition: Stable Critical Care Time: No Referrals: EMILY INMAN NP [Primary Care Provider] - Follow up/PCP as directed Instructions: Fatigue (DC), Generalized Weakness (DC) Additional Instructions: Follow-up with your family MD in 1 to 2 days. Return to ER for any new signs or symptoms.
[2023-10-11 16:37] LABS: Group A Strep NOT DETECTED (NEGATIVE)
[2023-10-11 16:48] LABS: INFLUENZA A NEGATIVE (NEGATIVE); INFLUENZA B NEGATIVE (NEGATIVE); RESPIRATORY SYNCTIAL VIRUS NEGATIVE (NEGATIVE); SARS-CoV-2 Xpert Express NEGATIVE (NEGATIVE)
[2023-10-11 17:05] VITALS: BP 94/64; RESP 16
[2023-10-11 17:14] VITALS: O2SAT 100
== END 2023-10-11 17:20 | disposition home or self-care (01) ==
LOC: ED 15:21
DX: R06.00 Dyspnea, unspecified (principal); R53.83 Other fatigue; I10 Essential (primary) hypertension; Z79.899 Other long term (current) drug therapy; Z28.310 Unvaccinated for COVID-19; Z72.0 Tobacco use
CPT/HCPCS: 0241U; 87651; 99282